=== PATIENT | female | born 2005 | race Caucasian/White ===

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

== ENCOUNTER 2024-03-16 08:54 | Emergency (ER) | payer MEDICAID ==
[~2024-03-16] VITALS: Ht 172.7 cm; Wt 104.5 kg
[2024-03-16] MEDS: LORazepam 1 MG tablet PO ONE (10:18)
[2024-03-16] MEDS: ketorolac trometh 15mg/ml vial 15 MG/ML ML IM ONE (10:19)
[2024-03-16 10:31] VITALS: BP 140/93; PULSE 92; RESP 16; TEMP 97.6; O2SAT 99
== END 2024-03-16 10:33 | disposition home or self-care (01) ==
LOC: ER 08:55
DX: R07.81 Pleurodynia (principal); F41.9 Anxiety disorder, unspecified; R07.89 Other chest pain; Z79.1 Long term (current) use of non-steroidal anti-inflammatories (NSAID); Z79.2 Long term (current) use of antibiotics; Z79.899 Other long term (current) drug therapy; Z98.890 Other specified postprocedural states
CPT/HCPCS: 96372; 99283; J1885

== ENCOUNTER 2024-03-16 23:45 | Emergency (ER) | payer MEDICAID ==
[~2024-03-16] VITALS: Ht 172.7 cm; Wt 106.8 kg
[2024-03-17 00:21] LABS: BASOPHILS # (AUTO) 0.1 X10'3 (0-0.2); BASOPHILS % (AUTO) 0.6 % (0-1); EOSINOPHILS # (AUTO) 0.1 X10'3 (0-0.9); EOSINOPHILS % (AUTO) 0.9 % (0-6); HEMATOCRIT 35.8 % (35.0-45.0); LYMPHOCYTES # (AUTO) 2.2 X10'3 (1.1-4.8); LYMPHOCYTES % (AUTO) 16.2 % (21-51); MEAN CORPUSCULAR HEMOGLOBIN 27.7 PG (27.0-31.0); MEAN CORPUSCULAR HGB CONC 33.5 g/dL (33.0-36.5); MEAN CORPUSCULAR VOLUME 82.9 FL (78-98); MEAN PLATELET VOLUME 7.6 FL (7.4-10.4); MONOCYTES # (AUTO) 1.1 X10'3 (0-0.9); MONOCYTES % (AUTO) 8.2 % (2-12); NEUTROPHILS # (AUTO) 9.9 X10'3 (1.8-7.7); NEUTROPHILS % (AUTO) 74.1 % (42-75); PLATELET COUNT 355 X10'3 (140-440); RED BLOOD COUNT 4.32 X10'6 (4.20-5.60); RED CELL DISTRIBUTION WIDTH 14.1 % (11.5-14.5); WHITE BLOOD COUNT 13.3 X10'3 (4.5-11.0)
[2024-03-17 00:37] LABS: ALANINE AMINOTRANSFERASE 30 U/L (12-78); ALKALINE PHOSPHATASE 78 IU/L (20-180); ANION GAP 9 (8-16); ASPARTATE AMINO TRANSFERASE 19 U/L (10-37); BILIRUBIN,TOTAL 0.7 MG/DL (0.1-1.0); BLOOD UREA NITROGEN 9 MG/DL (7-18); BUN/CREATININE RATIO 10.1 (10.0-20.0); CALCIUM 9.8 MG/DL (8.5-10.1); CHLORIDE 103 MMOL/L (99-107); CREATININE 0.89 MG/DL (0.40-0.90); GLUCOSE 110 MG/DL (70-104); POTASSIUM 3.8 MMOL/L (3.5-5.1); SODIUM 136 MMOL/L (135-145); TOTAL CARBON DIOXIDE 24.3 MMOL/L (24-32); TOTAL PROTEIN 8.2 G/DL (6.4-8.2); eCRCL 103 ML/MIN; eGFR 82 ML/MIN
[2024-03-17] MEDS: famotidine 20mg tablet PO ONE (00:42)
[2024-03-17] MEDS: LIDOcaine 2% Viscous 15ml cup MM ONE (00:42)
[2024-03-17] MEDS: mag hydrox/Alum hydrox/simeth 30ml oral suspension PO ONE (00:42)
[2024-03-17 00:50] LABS: D-DIMER 0.33 MG/L FEU (0-0.50)
[2024-03-17 00:53] LABS: PRO BRAIN NATRIURETIC PEPTIDE 48 PG/ML (0-125); THYROID STIMULATING HORMONE 2.67 ulU/ml (0.34-4.50)
[2024-03-17 01:10] LABS: URINE HCG NEGATIVE (NEG)
[2024-03-17 01:28] LABS: URINE AMPHETAMINE SCREEN NEGATIVE (Neg); URINE BARBITUATE SCREEN NEGATIVE (Neg); URINE BENZODIAZEPINES SCREEN NEGATIVE (Neg); URINE CANNABINOID SCREEN NEGATIVE (Neg); URINE COCAINE SCREEN NEGATIVE (Neg); URINE METHADONE SCREEN NEGATIVE (Neg); URINE OPIATE SCREEN NEGATIVE (Neg); URINE PHENCYCLIDINE SCREEN NEGATIVE (Neg)
[2024-03-17 02:09] VITALS: TEMP 98.6
[2024-03-17 02:15] VITALS: BP 119/82; PULSE 114; RESP 17; O2SAT 96
== END 2024-03-17 02:24 | disposition home or self-care (01) ==
LOC: ER 23:46
DX: R07.89 Other chest pain (principal); Z79.899 Other long term (current) drug therapy; Z79.2 Long term (current) use of antibiotics; Z79.1 Long term (current) use of non-steroidal anti-inflammatories (NSAID); Z98.890 Other specified postprocedural states
CPT/HCPCS: 36415; 71045; 80053; 80305; 81025; 83880; 84145; 84443; 84484; 85025; 85379; 93005; 99285

== ENCOUNTER 2024-08-15 08:56 | Emergency (ER) | payer MEDICAID ==
[~2024-08-15] VITALS: Ht 172.7 cm; Wt 111.5 kg
[2024-08-15] MEDS ORDERED: GUAI120015 PO (10:13)
[2024-08-15] MEDS ORDERED: SODI30SP3 BOTHNARES (10:13)
[2024-08-15 10:57] VITALS: BP 110/75; PULSE 90; RESP 16; TEMP 99; O2SAT 99
== END 2024-08-15 10:55 | disposition home or self-care (01) ==
LOC: ER 08:56
DX: B34.9 Viral infection, unspecified (principal); Z90.89 Acquired absence of other organs; Z20.822 Contact with and (suspected) exposure to COVID-19
CPT/HCPCS: 36415; 87502; 87503; 87811; 99283

== ENCOUNTER 2024-09-08 08:58 | Emergency (ER) | payer MEDICAID ==
[~2024-09-08] VITALS: Ht 172.7 cm; Wt 99.5 kg
[~2024-09-08 08:58] MED LIST changes: +GUAI120015 PO; +SODI30SP3 BOTHNARES
[2024-09-08] MEDS: normal saline 1000ml 1,000 ML IV ONE (13:06)
[2024-09-08] MEDS: ondansetron/PF 4mg/2ml inj IV ONE (13:20)
[2024-09-08] MEDS: ketorolac trometh 15mg/ml vial 15 MG/ML ML IV ONE (13:21)
[2024-09-08 13:24] LABS: BILIRUBIN,URINE SMALL (Neg); CLARITY,URINE CLEAR (Clear); COLOR,URINE YELLOW (Yellow); GLUCOSE, URINE NEGATIVE (Neg); KETONES,URINE >=80 mg/dl (Neg); LEUKOCYTE ESTERASE ,URINE NEGATIVE (Neg); NITRITES, URINE NEGATIVE (Neg); OCCULT BLOOD,URINE NEGATIVE (Neg); PH,URINE 6.5 (4.8-8.0); PROTEIN,URINE 30 mg/dl (Neg); UROBILINOGEN,URINE 0.2 E.U/dL (0.2-1.0)
[2024-09-08 13:25] LABS: BASOPHILS % (AUTO) 0.4 % (0-1); EOSINOPHILS % (AUTO) 0.2 % (0-6); HEMATOCRIT 35.6 % (35.0-45.0); LYMPHOCYTES # (AUTO) 0.2 X10'3 (1.1-4.8); LYMPHOCYTES % (AUTO) 3.9 % (21-51); MEAN CORPUSCULAR HGB CONC 33.8 g/dL (33.0-36.5); MEAN CORPUSCULAR VOLUME 82.7 FL (78-98); MEAN PLATELET VOLUME 7.8 FL (7.4-10.4); MONOCYTES # (AUTO) 0.7 X10'3 (0-0.9); MONOCYTES % (AUTO) 11.2 % (2-12); NEUTROPHILS # (AUTO) 5.2 X10'3 (1.8-7.7); NEUTROPHILS % (AUTO) 84.3 % (42-75); PLATELET COUNT 316 X10'3 (140-440); WHITE BLOOD COUNT 6.2 X10'3 (4.5-11.0)
[2024-09-08 13:26] LABS: UA COLLECTION TYPE CLN CATCH MIDSTREAM
[2024-09-08 13:35] LABS: BACTERIA,URINE NONE SEEN /HPF (Neg); RBC,URINE NONE SEEN /HPF (0-2); SQUAMOUS EPITHELIAL CELL,UR FEW /LPF (FEW); WBC,URINE NONE SEEN /HPF (0-4)
[2024-09-08 13:36] LABS: ALANINE AMINOTRANSFERASE 27 U/L (12-78); ALBUMIN 4.2 G/DL (3.4-5.0); ALKALINE PHOSPHATASE 80 IU/L (20-180); ANION GAP 9 (8-16); ASPARTATE AMINO TRANSFERASE 14 U/L (10-37); BILIRUBIN,TOTAL 0.6 MG/DL (0.1-1.0); BLOOD UREA NITROGEN 9 MG/DL (7-18); BUN/CREATININE RATIO 10.1 (10.0-20.0); CALCIUM 9.3 MG/DL (8.5-10.1); CHLORIDE 101 MMOL/L (99-107); CREATININE 0.89 MG/DL (0.40-0.90); GLUCOSE 97 MG/DL (70-104); POTASSIUM 3.6 MMOL/L (3.5-5.1); SODIUM 138 MMOL/L (135-145); TOTAL CARBON DIOXIDE 28.3 MMOL/L (24-32); TOTAL PROTEIN 8.6 G/DL (6.4-8.2); eCRCL 103 ML/MIN; eGFR 82 ML/MIN
[2024-09-08 13:59] LABS: BETA HCG,QUANTITATIVE < 1.0 mIU/ml
[2024-09-08] MEDS ORDERED: iohexol 300mg/ml 100ml inj. ONE (14:03)
[2024-09-08] MEDS ORDERED: IBUP-862 PO (14:58)
[2024-09-08] MEDS ORDERED: HYDR-3965 PO (14:58)
[2024-09-08 15:21] VITALS: BP 130/78; PULSE 80; RESP 16; TEMP 98.7; O2SAT 98
== END 2024-09-08 15:22 | disposition home or self-care (01) ==
LOC: ER 08:59
DX: N83.201 Unspecified ovarian cyst, right side (principal); N94.6 Dysmenorrhea, unspecified; M54.6 Pain in thoracic spine; R50.9 Fever, unspecified; Z90.89 Acquired absence of other organs
CPT/HCPCS: 36415; 74177; 80053; 81001; 84702; 85025; 87502; 87503; 96361; 96374; 96375; 99285; J1885; J2405; J7030; Q9967

== ENCOUNTER 2024-09-24 09:02 | Emergency (ER) | payer MEDICAID ==
[~2024-09-24] VITALS: Ht 172.7 cm; Wt 109.1 kg
[~2024-09-24 09:02] MED LIST changes: +HYDR-3965 PO; +IBUP-862 PO
[2024-09-24 10:55] VITALS: TEMP 100
[2024-09-24 12:52] VITALS: BP 110/78; PULSE 107; RESP 16; O2SAT 97
== END 2024-09-24 13:06 | disposition home or self-care (01) ==
LOC: ER 09:03
DX: B34.9 Viral infection, unspecified (principal); R05.9 Cough, unspecified; Z90.89 Acquired absence of other organs; Z79.1 Long term (current) use of non-steroidal anti-inflammatories (NSAID); Z79.899 Other long term (current) drug therapy; Z20.822 Contact with and (suspected) exposure to COVID-19
CPT/HCPCS: 36415; 71046; 87502; 87503; 87811; 99284

== ENCOUNTER 2024-11-06 15:23 | Emergency (ER) | payer MEDICAID ==
[~2024-11-06] VITALS: Ht 172.7 cm; Wt 97.0 kg
[~2024-11-06 15:23] MED LIST changes: -HYDR-3965 PO
[2024-11-06 15:37] VITALS: BP 148/97; PULSE 93; RESP 15; TEMP 98.2; O2SAT 100
[2024-11-06] MEDS ORDERED: BENZ142C9 TOP (15:58)
[2024-11-06] MEDS ORDERED: MUPI22OI30 TOP (16:13)
== END 2024-11-06 17:38 | disposition home or self-care (01) ==
LOC: ER 15:24
DX: L08.9 Local infection of the skin and subcutaneous tissue, unspecified (principal); Z90.89 Acquired absence of other organs
CPT/HCPCS: 99283

== ENCOUNTER 2024-12-07 17:32 | Emergency (ER) | payer MEDICAID ==
[~2024-12-07] VITALS: Ht 172.7 cm; Wt 109.1 kg
[~2024-12-07 17:32] MED LIST changes: +BENZ142C9 TOP
--- NOTE | 2024-12-07 19:17 | Physician Documentation ---
History of Present Illness ~ Chief Complaint: Arm Pain Stated Complaint: NUMBNESS AND PAIN IN RT ARM/SHOULDER/NECK Time Seen by MD: 18:29 Primary Medical Doctor: [facility] HPI Patient presents to the emergency room for evaluation of right arm and neck pain has been progressive over the past week. Patient was works at a sandwich shop and uses Tums. Pain with tenderness to palpation over her right neck during episodes pain she feels dizzy like she may pass out. No palpitations. O ccasional ibuprofen for pain. No history of neck traumas/car accidents. She was states she feels a click in her wrist when she moves it. Tetanus within 5 years: No Medication Reconciliation Allergies: Coded Allergies: No Known Allergies (Unverified , 12/07/24) Scheduled Albuterol Sulfate (Proventil Hfa), 2 PUFFS INH Q6H Amox Tr/Potassium Clavulanate (Augmentin 875-125 Tablet), 1 TAB PO Q12H Benzoyl Peroxide (Benzoyl Peroxide), 1 APPLIC TOP Q12H Cephalexin (Keflex), 1 CAP PO Q6H Guaifenesin (Mucinex), 1 TAB PO Q12H Ibuprofen (Ibu), 1 TAB PO Q6H Lidocaine Hcl (Xylocaine Viscous), 5 ML PO Q2H PRN SORE THROAT Sodium Chloride (Saline Nasal [place]), 1-2 SPRAYS BOTHNARES Q2H Scheduled PRN Ibuprofen (Ibuprofen), 1 TAB PO Q8H PRN for pain Miscellaneous Medications Home Med List (No Home Medications), (Reported) Past Medical History Past Medical History: No Pertinent History Past Surgical History: tonsillectomy Last Menstrual Period: Nov 16, 2024 Alcohol Use: None Drug Use: none Lives with: Family Lives In: Home Occupation: student, child Review of Systems ROS All review of systems negative except as per HPI Physical Exam Vital Signs: Temperature: 98.0, Heart Rate: 89, Respiratory Rate: 16, BP: 119/79, Pulse Oximetry: 97, Weight: 109.090 Physical Exam General: Patient is awake, alert, oriented x4 in no acute distress and well appearing.~ Head: Normocephalic and atraumatic. Eyes: Conjunctival normal. EOMI. PERRL. ENT: Mucous membranes moist. Neck: Supple, trachea is midline. Positive to palpation right trapezius Chest: Clear to auscultation bilaterally without rales, rhonchi, or wheezes. There is no accessory muscle use or retractions. Cardiac: RRR without murmurs, gallops, or rubs. Abd: Soft, nondistended, nontender, with normoactive bowel sounds. No guarding, rebound, or rigidity. Extremities: Left upper extremity normal, right upper extremity with positive Tinel sign positive Phalen sign and positive Neer's. Progress Results/Orders Results/Orders Vital Signs 12/07/24 17:48 Temp 98.0 Pulse 89 Resp 16 B/P (MAP) 119/79 Pulse Ox 97 Medical Decision Making Findings Patient presents to the emergency room with right neck and arm pain as per HPI. Differentials include but are not limited to musculoskeletal pain, referred pain, ACS, impingement syndrome, carpal tunnel. Physical exam is consistent with carpal tunnel. There may be an element of impingement syndrome as well. 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 Had long discussion regarding the anatomy of carpal tunnel in the need to wear splinting and anti-inflammatories. Regarding her �almost passing out �it was no palpitations reported and she was very low cardiovascular risk. Departure Disposition: 01 HOME / SELF CARE / HOMELESS Impression: Primary Impression: Carpal tunnel syndrome Discharge Instructions: Carpal Tunnel Syndrome Additional Instructions: Nighttime splinting it was imperative along with course of nonsteroidal anti- inflammatory such as ibuprofen and a leave. Ibuprofen leave we will give you pain benefits however I am more interested in the anti-inflammatory action therefore I recommend a leave as it was only 2 times daily dosing. Tried to modify your daily activities. Follow up with your doctor as you may need referral to physical therapy. Referrals: NO PRIMARY CARE PROVIDER (PCP) Prescriptions Acetaminophen (Tylenol Extra Strength) 500 Mg Tablet 2 TAB PO Q6H PRN PRN for pain or fever for 7 Days, #56 TAB Prov: KAVIN MAR MD 12/07/24 Naproxen Sodium* (Aleve*) 220 Mg Capsule 220 MG PO BID, #60 TAB Prov: KAVIN MAR MD 12/07/24 Education Educated: Patient Educated regarding: diagnosis, treatment, need for follow up Signature Scribe Signature: No scribe Attestation: The note accurately reflects work and decisions made by me.Kavin Mar MD 12/07/24 19:21 KAVIN MAR MD December 07, 2024 19:17
[2024-12-07] MEDS ORDERED: ACET-2615 PO (19:20)
[2024-12-07] MEDS ORDERED: NAPR220C15 PO (19:20)
[2024-12-07] MEDS: acetaminophen 325mg tablet PO ONE (19:33)
[2024-12-07] MEDS: ketorolac trometh 30MG/ML vial 30 MG/ML VIAL IM ONE (19:33)
[2024-12-07 19:38] VITALS: BP 116/78; PULSE 84; RESP 18; TEMP 98.6; O2SAT 99
== END 2024-12-07 19:39 | disposition home or self-care (01) ==
LOC: ER 17:33
DX: G56.01 Carpal tunnel syndrome, right upper limb (principal); Z90.89 Acquired absence of other organs
CPT/HCPCS: 96372; 99283; J1885

== ENCOUNTER 2024-12-31 10:45 | Emergency (ER) | payer MEDICAID ==
[~2024-12-31] VITALS: Ht 172.7 cm; Wt 109.2 kg
[~2024-12-31 10:45] MED LIST changes: +NAPR220C15 PO
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
[2024-12-31 11:52] LABS: URINE HCG NEGATIVE (NEG)
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
[2024-12-31] MEDS: ketorolac trometh 15mg/ml vial 15 MG/ML ML IV ONE (13:20)
[2024-12-31] MEDS ORDERED: iohexol 350MG/ML 100ml bottle IV ONE (13:46)
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
[2024-12-31 14:22] VITALS: BP 129/68; PULSE 65; RESP 16; TEMP 96.9; O2SAT 98
== END 2024-12-31 14:21 | disposition home or self-care (01) ==
LOC: ER 10:46
DX: S13.8XXA Sprain of joints and ligaments of other parts of neck, initial encounter (principal); Z79.899 Other long term (current) drug therapy; X50.1XXA Overexertion from prolonged static or awkward postures, initial encounter; Y93.89 Activity, other specified; Y92.89 Other specified places as the place of occurrence of the external cause; Y99.8 Other external cause status
CPT/HCPCS: 70498; 72040; 72125; 81025; 96374; 99285; J1885; Q9967

== ENCOUNTER 2025-05-26 08:28 | Inpatient (IN) | payer MEDICAID ==
[~2025-05-26] VITALS: Ht 172.7 cm; Wt 112.7 kg
[~2025-05-26 08:28] MED LIST changes: -IBUP-1985 PO; +IBUP600T52 PO; -NAPR220C15 PO
[2025-05-26 09:38] LABS: MEAN PLATELET VOLUME 7.2 FL (7.4-10.4); RED CELL DISTRIBUTION WIDTH 13.2 % (11.5-14.5)
[2025-05-26 09:48] LABS: URINE HCG NEGATIVE (NEG)
[2025-05-26 09:52] LABS: LEUKOCYTE ESTERASE ,URINE NEGATIVE (Neg); NITRITES, URINE NEGATIVE (Neg); OCCULT BLOOD,URINE NEGATIVE (Neg)
[2025-05-26 09:56] LABS: UA COLLECTION TYPE CLN CATCH MIDSTREAM
[2025-05-26 09:56] LABS: CREATININE 0.89 MG/DL (0.40-0.90); TOTAL CARBON DIOXIDE 29.4 MMOL/L (24-32); eCRCL 102 ML/MIN; eGFR 81 ML/MIN
[2025-05-26] MEDS: mag hydrox/Alum hydrox/simeth 30ml oral suspension PO ONE (10:24)
[2025-05-26] MEDS: CefTRIAXone/D5W-Rocephin 1gm 50 ML IV ONE (10:24)
[2025-05-26] MEDS: LIDOcaine 2% Viscous 15ml cup MM PRN (10:24)
--- NOTE | 2025-05-26 11:08 | RADIOLOGY REPORT ---
INDICATION: epigastric abdominal pain TECHNIQUE: Multiple real-time sonographic images were obtained of the right upper quadrant. COMPARISON: CT CT ABDOMEN PELVIS W/ IV CONTRAST on DOS: 09/08/24 FINDINGS: The liver demonstrates homogeneous echotexture without focal mass lesions. The liver measures 14.6 cm. There is no intrahepatic or extrahepatic ductal dilatation. The common duct measures 0.2 cm. Gallbladder sludge and stones are present. The gallbladder wall measures 0.3 cm and is within normal limits. The right kidney measures 10.4 cm. The right kidney is normal in contour, size, and shape. The echogenicity is normal. There is no hydronephrosis. The pancreas is not well visualized due to overlying bowel gas. IMPRESSION: Gallbladder sludge and stones are present.
--- NOTE | 2025-05-26 11:52 | Physician Documentation ---
History of Present Illness Chief Complaint: Abdominal Pain Stated Complaint: ABD PAIN Time Seen by MD: 08:38 Primary Medical Doctor: [facility] Mode of Arrival: POV, Ambulatory HPI 19 year old female reports several days of epigastric pain radiating to her back. She reports nausea but no vomiting, no fevers/cough/shortness of breath/diarrhea/chest pain. She has experienced multiple episodes of this over the past few years, but has never been diagnosed with an etiology. She has not eaten much in the past few days. Denies abdominal surgeries. Medication Reconciliation Allergies: Coded Allergies: No Known Allergies (Unverified , 12/07/24) Scheduled Albuterol Sulfate (Proventil Hfa), 2 PUFFS INH Q6H Amox Tr/Potassium Clavulanate (Augmentin 875-125 Tablet), 1 TAB PO Q12H Benzoyl Peroxide (Benzoyl Peroxide), 1 APPLIC TOP Q12H Cephalexin (Keflex), 1 CAP PO Q6H Guaifenesin (Mucinex), 1 TAB PO Q12H Ibuprofen (Ibu), 1 TAB PO Q6H Lidocaine Hcl (Xylocaine Viscous), 5 ML PO Q2H PRN SORE THROAT Sodium Chloride (Saline Nasal [place]), 1-2 SPRAYS BOTHNARES Q2H Scheduled PRN Ibuprofen (Ibuprofen), 1 TAB PO Q8H PRN for pain Miscellaneous Medications Home Med List (No Home Medications), (Reported) Past Medical History Past Medical History: No Pertinent History Past Surgical History: tonsillectomy Alcohol Use: None Drug Use: none Lives with: Family Lives In: Home Occupation: student, child Review of Systems All Other Systems at this time: Reviewed and Negative Physical Exam Vital Signs: RN Vital Signs have been reviewed: Yes, Temperature: 97.5, Source: Temporal, Heart Rate: 106, Respiratory Rate: 16, BP: 130/71, Pulse Oximetry: 100, Weight: 112.700 Oxygen Flow Rate: 0 Physical Exam HEENT: PERRL, moist oral mucosa, EOMI Pulmonary: No respiratory distress Cardiac: RRR, no murmur, rub or gallop GI: nondistended, soft, diffusely tender without cruz's sign or mcburney's point tenderness MSK: no deformity Skin: w/d/i, no rash Neuro: alert, nonfocal Psych: normal affect Progress Results/Orders Results/Orders Orders - ANA LUISA MOONEY MD Ultrasound Of Abdomen (05/26/25 ) Lidocaine 2% Viscous (Xylocaine 2% Visco (05/26/25 10:10) Completed Orders - ANA LUISA MOONEY MD Urinalysis, Cult If Indicated (05/26/25 08:35) Hcg, Ur Ql (05/26/25 08:35) Cbc/Diff (05/26/25 08:35) BMP (05/26/25 08:35) Lipase (05/26/25 08:35) CMP (05/26/25 08:35) Ceftriaxone/[id number] 1gm (Rocephin 1 (05/26/25 09:55) Ultrasound Of Abdomen (05/26/25 ) Mag & Alum Hydrox/Simeth Susp (Maalox Or (05/26/25 10:10) Medications Received in ER Medications (Trade) Dose Ordered Sig/Leonidas Route PRN Reason Start Time Stop Time Status Last Admin Dose Admin Ceftriaxone Sodium 50 ml @ 100 mls/hr ONCE ONCE IV 05/26/25 09:55 05/26/25 10:24 DC 05/26/25 10:24 100 MLS/HR (Maalox oral suspension) 30 ml ONCE ONCE PO 05/26/25 10:10 05/26/25 10:11 DC 05/26/25 10:24 30 ML (Xylocaine 2% Viscous 15mL cup) 15 ml ONCE PRN MM sore throat 05/26/25 10:10 05/26/25 10:24 15 ML Vital Signs 05/26/25 05/26/25 08:30 08:52 Temp 97.5 Pulse 106 Resp 16 16 B/P (MAP) 130/71 Pulse Ox 100 O2 Flow Rate 0 Laboratory Tests Test 05/26/25 09:15 05/26/25 09:19 Urine Specimen Description Cln catch midstream Urine Color Yellow Urine Clarity Clear Urine pH 6.0 Urine Specific [place] 1.025 Urine Protein Negative Urine Glucose (UA) Negative Urine Ketones Negative Urine Occult Blood Negative Urine Nitrite Negative Urine Bilirubin Negative Urine Urobilinogen 0.2 Urine Leukocyte Esterase Negative Urine Culture Indicated Not ind Volume Urine Centrifuged 10 ml Urine HCG, Qualitative Negative Urine Comment White Blood Count 8.9 Red Blood Count 4.38 Hemoglobin 12.2 Hematocrit 35.8 Mean Corpuscular Volume 81.8 Mean Corpuscular Hemoglobin 27.7 Mean Corpuscular Hemoglobin Concent 33.9 Red Cell Distribution Width 13.2 Platelet Count 355 Mean Platelet Volume 7.2 L Neutrophils (%) (Auto) 65.4 Lymphocytes (%) (Auto) 24.9 Monocytes (%) (Auto) 6.9 Eosinophils (%) (Auto) 2.1 Basophils (%) (Auto) 0.7 Neutrophils # (Auto) 5.8 Lymphocytes # (Auto) 2.2 Monocytes # (Auto) 0.6 Eosinophils # (Auto) 0.2 Basophils # (Auto) 0.1 CBC Comment Sodium Level 138 Potassium Level 3.3 L Chloride Level 102 Carbon Dioxide Level 29.4 Anion Gap 7 L Blood Urea Nitrogen 10 Creatinine 0.89 Estimated GFR/1.73 m2 81 BUN/Creatinine Ratio 11.2 Glucose Level 101 Calcium Level 8.9 Total Bilirubin 0.4 Aspartate Amino Transf (AST/SGOT) 31 Alanine Aminotransferase (ALT/SGPT) 29 Alkaline Phosphatase 91 Total Protein 8.0 Albumin 3.7 Globulin 4.3 Albumin/Globulin Ratio 0.9 L Lipase 37 Chemistry Comments Medical Decision Making Additional information obtaine: N/A Findings 19 year old female with epigastric pain. Exam and vitals unremarkable. Workup d emonstrated normal labs but US demonstrating multiple stones/sludge and thickened gallbladder wall. Plan to notify surgeon and admit to hospitalist for recurrent biliary colic and indication for cholecystectomy. Differential Dx:Considerations: Appendicitis, Cholangitis, Cholelithasis, Esophagitis, Gastritis/PUD, Hepatitis, Ovarian cyst/torsion, Pancreatitis, PID, Urinary tract infection Departure Disposition: 09 ADMITTED INPATIENT Admitted to Inpatient Unit: to hospitalist Admission Level of Care: Med/Surg Impression: Primary Impression: Recurrent biliary colic Condition: Stable Referrals: NO PRIMARY CARE PROVIDER (PCP) Education Educated: Patient Educated regarding: diagnosis, treatment, prognosis, need for follow up Signature Scribe Signature: . Attestation: . ANA LUISA MOONEY MD May 26, 2025 11:52
[2025-05-26] MEDS ORDERED: magnesium sulf-water 4G/100mL 100 ML IV PRN (12:35)
[2025-05-26] MEDS ORDERED: mag hydrox/Alum hydrox/simeth 30ml oral suspension PO PRN (12:35)
[2025-05-26] MEDS ORDERED: potassium Cl 40MEQ/1/2NS 520ml 520 ML IV PRN (12:35)
[2025-05-26] MEDS ORDERED: potassium Cl 20 mEq SR tablet PO PRN (12:35)
[2025-05-26] MEDS ORDERED: magnesium sulf-water 2g/50mL 50 ML IV PRN (12:35)
[2025-05-26] MEDS ORDERED: magnesium hydroxide 30ml (MOM) UD suspension PO PRN (12:35)
[2025-05-26] MEDS ORDERED: morphine 4 MG/ML inj SYRINge IV PRN (12:49)
[2025-05-26] MEDS: ondansetron/PF 4mg/2ml inj IV PRN (13:00)
[2025-05-26] MEDS: morphine 4 MG/ML inj SYRINge IV PRN (13:01)
[2025-05-26] MEDS ORDERED: NORMAL SALINE IV ONE ×3 (13:10→18:10)
[2025-05-26] MEDS ORDERED: SINCALIDE IV ONE ×3 (13:10→18:10)
[2025-05-26 14:25] VITALS: BP 112/69; PULSE 84; RESP 16; TEMP 98.6; O2SAT 99
[2025-05-26] MEDS: normal saline 1000ml 1,000 ML IV SCH (15:45)
--- NOTE | 2025-05-26 17:29 | HISTORY AND PHYSICAL ---
History & Physical Providers to CC ~ History of Present Illness Reason for Admit\Complaint: Abdominal pain with nausea and and chills History of Present Illness This is a 19-year-old female who has a history of chronic abdominal pain and nausea this has been increasing significantly over the past several days and points to her epigastric region which is radiating to her back. The patient notices that her abdominal discomfort increases with stress and eating carbohydrate rich foods and is less affected by fatty foods. Abdominal ultrasound did demonstrate gallstones and sludge in the gallbladder other than a serum potassium of 3.3 the remaining lab values including liver function tests and bilirubin as well as lipase are all well within normal limits. Patient has a negative Brody sign on exam I did order a HIDA scan. Start the patient on famotidine and Tums. Note beta hCG is negative and that is the patient is not . Allergies: Coded Allergies: No Known Allergies (Unverified , 12/07/24) Home Medications Home Medications Active Reported No Home Medications (Home Med List) Each Past Medical History Past Medical History No chronic health conditions Past Surgical History Surgical History Comment Tonsillectomy Family History Family History: FH: diabetes mellitus Maternal grandmother Paternal grandmother Past Social History Social History Comment Occasionally vapes nicotine, denies any alcohol or use illicit drug use. Full code status. ROS ROS Except for positives in the HPI the rest of the 14 point review systems is negative. Exam Vitals: Vital Signs Date Time Temp Pulse Resp B/P (MAP) Pulse Ox O2 Delivery O2 Flow Rate FiO2 05/26/25 14:25 98.6 84 16 112/69 (83) 99 Room Air 05/26/25 12:30 0 General: Gen. No acute distress alert and oriented 4 Lungs clear to ascultation bilaterally, no wheezes rales or rhonchi appreciated Heart normal sinus rhythm no murmurs rubs or clicks noted Abdomen soft moderate epigastric and left upper quadrant tenderness, right upper quadrant is nontender with a negative Brody sign bowel sounds are normoactive Lower extremities no clubbing cyanosis, nor edema appreciated bilaterally Diagnostic Data Last Recorded Lab Results: 05/26/2591805/26/25918 Advance Care Planning Advanced Care plannin - 30 Minutes Problems: (1) Abdominal pain Status: Acute Additional Plan # upper abdominal discomfort # cholelithiasis and gallbladder sludge HIDA scan is ordered with EF However per exam more likely secondary to esophagitis or GERD Start famotidine and scheduled Tums. # hypokalemia on potassium replacement protocol # DVT prophylaxis Ambulation I spent a total of 16 minutes on reviewing various resuscitative measures/ ACP with the patient at the time of admission. The patient has decided on full code status Date of Service: May 26, 2025 Billing Provider: MICKI HERR DO Common Visit Codes: 35913-[id number] INP/OBS CARE (MOD) Secondary Visit Codes: 22410-[id number] CARE PLAN 30 MINUTES MICKI HERR DO May 26, 2025 17:29
[2025-05-26] MEDS: ketorolac trometh 30MG/ML vial 30 MG/ML VIAL IV SCH (18:00)
[2025-05-26] MEDS ORDERED: sincalide inj 2.2 MCG in normal saline 100ml IV soln 100 ML IV ONE (18:10)
[2025-05-26 18:30] VITALS: BP 124/76; PULSE 92; RESP 16; TEMP 96.7; O2SAT 98
[2025-05-26] MEDS: K and/or MAG REPLACEMENT MC SCH (19:20)
[2025-05-26 20:00] VITALS: RESP 16; O2SAT 98
--- NOTE | 2025-05-26 20:45 | RADIOLOGY REPORT ---
EXAM: NM NM HIDA SCAN DATE OF SERVICE: 05/26/2025 04:01 PM ORDERING PHYSICIAN: MICKI HERR REASON FOR EXAM: Gallstones TECHNIQUE: Planer images and clips were acquired of the abdomen for 60 minutes. COMPARISON: US ULTRASOUND OF ABDOMEN on DOS: 05/26/25, CT CT ABDOMEN PELVIS W/ IV CONTRAST on DOS: 09/08/24 FINDINGS: There was normal uptake of radiotracer into the liver and excretion into the biliary system, small bowel, and gallbladder. IMPRESSION: Unremarkable HIDA examination. Patent cystic duct. End of Report
[2025-05-26] MEDS: potassium Cl 20 mEq SR tablet PO PRN (21:10)
[2025-05-26] MEDS: docusate sod 100mg capsule PO SCH (21:12)
[2025-05-26 22:00] VITALS: BP 90/63; PULSE 78; RESP 18; TEMP 98.2; O2SAT 96
[2025-05-27 06:00] VITALS: BP 93/51; PULSE 66; RESP 18; TEMP 97.5; O2SAT 97
[2025-05-27 06:16] LABS: MEAN PLATELET VOLUME 7.5 FL (7.4-10.4); RED CELL DISTRIBUTION WIDTH 13.7 % (11.5-14.5)
[2025-05-27 06:28] LABS: CREATININE 0.88 MG/DL (0.40-0.90); TOTAL CARBON DIOXIDE 27.6 MMOL/L (24-32); eCRCL 103 ML/MIN; eGFR 82 ML/MIN
[2025-05-27 08:00] VITALS: RESP 16; O2SAT 98
[2025-05-27] MEDS: calcium carbonate 500mg chew tablet PO SCH (08:43)
[2025-05-27] MEDS ORDERED: PANT-47 PO (08:49)
--- NOTE | 2025-05-27 20:04 | DISCHARGE SUMMARY ---
Discharge Summary Providers to CC ~ Discharge Summary Admission Diagnosis: Symptomatic biliary colic Hospital Course DATE OF ADMISSION: 05/26/2025 DATE OF DISCHARGE: 05/27/2025 Discharge Diagnosis\Comment: Abdominal pain secondary to GERD, incidental cholelithiasis and gallbladder sludge, hypokalemia Operations\Procedures: None Consultants: None Complications: None Condition on DC: Stable New Medications: Pantoprazole Sodium (PROTONIX tablet) 40 Mg Tablet.dr 1 TAB PO DAILY for 30 Days, #30 TAB 0 Refills Discontinued Medications: Home Med List (No Home Medications) Each Discharge Summary: I admitted the patient with the following HPI: This is a 19-year-old female who has a history of chronic abdominal pain and nausea this has been increasing significantly over the past several days and points to her epigastric region which is radiating to her back. The patient notices that her abdominal dis comfort increases with stress and eating carbohydrate rich foods and is less affected by fatty foods. Abdominal ultrasound did demonstrate gallstones and sludge in the gallbladder other than a serum potassium of 3.3 the remaining lab values including liver function tests and bilirubin as well as lipase are all well within normal limits. Patient has a negative Brody sign on exam I did order a HIDA scan. Start the patient on famotidine and Tums. Note beta hCG is negative and that is the patient is not . The patient is HIDA scan was negative for cholecystitis with a normal functioning gallbladder. And speaking with the patient the following morning as well at the time of the admission appears that the patient is experiencing GERD versus esophagitis and the patient was discharged with a prescription for pantoprazole 40 mg daily. I did recommend the patient avoid spicy foods as well as carbonated beverages and not to vape nicotine as this will irritated esophageal sphincter and likely cause significant abdominal discomfort. I did discuss with the patient about avoiding fatty foods as she does have gallbladder sludge and cholelithiasis. The patient has a serum potassium of 3.3 on admission this normalized with a potassium replacement protocol and was 4.2 on day discharge. Gen. No acute distress alert and oriented 4 Lungs clear to ascultation bilaterally, no wheezes rales or rhonchi appreciated Heart normal sinus rhythm no murmurs rubs or clicks noted Abdomen soft nontender bowel sounds are normoactive Lower extremities no clubbing cyanosis, nor edema appreciated bilaterally The patient felt ready to be discharged and was medically cleared to be discharged on 05/27/2025 The patient was seen and evaluated on day of discharge. Time spent on discharge 25 minutes *Problems/Diagnosis: (1) Abdominal pain Status: Acute Total Time Spent on D/C: Up to 30 Minutes Date of Service: May 27, 2025 Billing Provider: MICKI HERR DO Common Visit Codes: 48749-ZIB/OBS DISCH DAY <30MIN MICKI HERR DO May 27, 2025 20:04
== END 2025-05-27 11:31 | disposition home or self-care (01) | DRG 243 ==
LOC: ER 08:28 → ED HOLD 12:41 → SUR 3N 14:06
PROVIDERS: ADMIT Family Medicine; ATTEND Family Medicine
PROC: CF1C1ZZ Planar Nuclear Medicine Imaging of Hepatobiliary System, All using Technetium 99m (Tc-99m) (ICD-10-PCS; principal; 2025-05-26)
DX: K21.9 Gastro-esophageal reflux disease without esophagitis (principal); E87.6 Hypokalemia; K80.20 Calculus of gallbladder without cholecystitis without obstruction; K82.8 Other specified diseases of gallbladder; F17.290 Nicotine dependence, other tobacco product, uncomplicated; Z79.899 Other long term (current) drug therapy; Z83.3 Family history of diabetes mellitus
CPT/HCPCS: 36415; 76700; 78226; 80053; 81003; 81025; 83690; 83735; 85025; 87081; 96365; 99285; A9537; G0378; J0696; J2270; J2405; J2470; J7030

== ENCOUNTER 2025-05-31 22:33 | Emergency (ER) | payer MEDICAID ==
[~2025-05-31] VITALS: Ht 172.7 cm; Wt 105.5 kg
[~2025-05-31 22:33] MED LIST changes: -ALBU6.7H14 INH; -AMOX-117 PO; -BENZ142C9 TOP; -CEPH-571 PO; -GUAI120015 PO; -IBUP-862 PO; -IBUP600T52 PO; -LIDO20SO16 PO; -NO HOME MEDS; +PANT-47 PO; -SODI30SP3 BOTHNARES
[2025-05-31 23:08] LABS: MEAN PLATELET VOLUME 7.4 FL (7.4-10.4); RED CELL DISTRIBUTION WIDTH 13.5 % (11.5-14.5)
[2025-05-31 23:30] LABS: CREATININE 0.90 MG/DL (0.40-0.90); TOTAL CARBON DIOXIDE 28.7 MMOL/L (24-32); eCRCL 101 ML/MIN; eGFR 80 ML/MIN
[2025-06-01] LABS: URINE HCG NEGATIVE (NEG)
[2025-06-01 00:03] LABS: LEUKOCYTE ESTERASE ,URINE NEGATIVE (Neg); NITRITES, URINE NEGATIVE (Neg); OCCULT BLOOD,URINE NEGATIVE (Neg)
--- NOTE | 2025-06-01 00:05 | Physician Documentation ---
History of Present Illness Chief Complaint: Abdominal Pain Stated Complaint: ABD PAIN Primary Medical Doctor: [facility] HPI This is a 19-year-old female who presents back to the emergency department with epigastric pain. Patient reports that this pain has been going on for years however that has gotten worse over the past few weeks. Seems to be affected by food. She was admitted here this week were gallbladder ultrasound was performed along with HIDA scan. They did find some sludge in some stones. No fevers. Patient's pain has improved by the time that has able to see patient but she still continues to have some nausea. Medication Reconciliation Allergies: Coded Allergies: ondansetron (Verified Allergy, Mild, rash, 06/01/25) Uncoded Allergies: ADHESIVE (TAPE) (Allergy, Severe, 06/01/25) Scheduled Pantoprazole Sodium (PROTONIX tablet), 1 TAB PO DAILY Discontinued Medications Albuterol Sulfate (Proventil Hfa), 2 PUFFS INH Q6H Discontinued Reason: patient no longer taking Amox Tr/Potassium Clavulanate (Augmentin 875-125 Tablet), 1 TAB PO Q12H Discontinued Reason: patient no longer taking Benzoyl Peroxide (Benzoyl Peroxide), 1 APPLIC TOP Q12H Discontinued Reason: patient no longer taking Cephalexin (Keflex), 1 CAP PO Q6H Discontinued Reason: patient no longer taking Guaifenesin (Mucinex), 1 TAB PO Q12H Discontinued Reason: patient no longer taking Home Med List (No Home Medications), (Reported) Ibuprofen (Ibuprofen), 1 TAB PO Q8H PRN for pain Discontinued Reason: patient no longer taking Ibuprofen (Ibu), 1 TAB PO Q6H Discontinued Reason: patient no longer taking Lidocaine Hcl (Xylocaine Viscous), 5 ML PO Q2H PRN SORE THROAT Discontinued Reason: patient no longer taking Sodium Chloride (Saline Nasal [place]), 1-2 SPRAYS BOTHNARES Q2H Discontinued Reason: patient no longer taking Past Medical History Past Medical History: No Pertinent History Past Surgical History: tonsillectomy Patient History: FH: diabetes mellitus Maternal grandmother Paternal grandmother Alcohol Use: None Drug Use: none Lives with: Family Lives In: Home Occupation: student, child Review of Systems ROS As stated above in the HPI, otherwise all systems are reviewed and negative. Physical Exam Vital Signs: Temperature: 97.7, Source: Temporal, Heart Rate: 95, Respiratory Rate: 18, BP: 105/82, Pulse Oximetry: 98, Weight: 105.500 Oxygen Flow Rate: 0 Physical Exam General: Patient is awake, alert, oriented x4 in no acute distress Head: Normocephalic and atraumatic. Eyes: Conjunctival normal. EOMI. PERRL. ENT: Mucous membranes moist. Neck: Supple, trachea is midline. Chest: Clear to auscultation bilaterally without rales, rhonchi, or wheezes. There is no accessory muscle use or retractions. Cardiac: RRR without murmurs, gallops, or rubs. Abd: Soft, nondistended, epigastric tenderness to pain without peritonitis Progress Results/Orders Results/Orders Vital Signs 05/31/25 22:52 Temp 97.7 Pulse 95 Resp 18 B/P (MAP) 105/82 Pulse Ox 98 O2 Flow Rate 0 Laboratory Tests Test 05/31/25 22:55 05/31/25 23:00 White Blood Count 6.4 Red Blood Count 4.61 Hemoglobin 12.7 Hematocrit 37.6 Mean Corpuscular Volume 81.6 Mean Corpuscular Hemoglobin 27.6 Mean Corpuscular Hemoglobin Concent 33.9 Red Cell Distribution Width 13.5 Platelet Count 398 Mean Platelet Volume 7.4 Neutrophils (%) (Auto) 60.5 Lymphocytes (%) (Auto) 29.9 Monocytes (%) (Auto) 7.2 Eosinophils (%) (Auto) 1.2 Basophils (%) (Auto) 1.2 H Neutrophils # (Auto) 3.9 Lymphocytes # (Auto) 1.9 Monocytes # (Auto) 0.5 Eosinophils # (Auto) 0.1 Basophils # (Auto) 0.1 CBC Comment Sodium Level 137 Potassium Level 3.4 L Chloride Level 100 Carbon Dioxide Level 28.7 Anion Gap 8 Blood Urea Nitrogen 11 Creatinine 0.90 Estimated GFR/1.73 m2 80 BUN/Creatinine Ratio 12.2 Glucose Level 104 Calcium Level 9.1 Total Bilirubin 1.6 H Aspartate Amino Transf (AST/SGOT) 382 H Alanine Aminotransferase (ALT/SGPT) 350 H Alkaline Phosphatase 238 H Total Protein 8.7 H Albumin 4.0 Globulin 4.7 H Albumin/Globulin Ratio 0.9 L Lipase 40 Chemistry Comments Urine HCG, Qualitative Negative Urine Comment Medical Decision Making Additional information obtaine: old records Findings MSE performed in triage and patient returned to ED lobby by nursing staff to await available ED room Differential Dx:Considerations: Appendicitis, Bowel obstruction, Cholangitis, Cholelithasis Addendum Sign-out note: I received sign-out on this patient at shift change. Pending abdominal ultrasound. I reviewed her laboratory testing, which shows elevated LFTs. Repeat chemistry panel shows slightly worsening LFTs. I reviewed her ultrasound, which shows gallstones but no inflammatory changes to suggest cholecystitis. We then proceeded with an MRCP. This shows dilated common bile duct but no obvious stone. Consult: I spoke to Dr. Smith, general surgery. He recommends transfer for ERCP. Multiple phone calls were made to outside hospitals. Eventually, I did speak to the hospital in [place] that was willing to accept the patient for transfer for GI evaluation. Patient was given further nausea medications and maintenance IV fluids. She will be transferred to an outside hospital for ERCP/GI evaluation. Addison Katz MD Departure Disposition: 02 SHORT TERM HOSPITAL Impression: Primary Impression: Choledocholithiasis Condition: Guarded Referrals: NO PRIMARY CARE PROVIDER (PCP) Critical Care Note Total Time (mins): 37 Critical Care Note The very real possibility of a deterioration of this patient's condition required the highest level of my preparedness for sudden, emergent intervention. I provided critical care services, which included medication orders, frequent reevaluations of the patient's condition and response to treatment, ordering and reviewing test results, and discussing the case with various consultants. Excludes time spent performing separately billable procedures. The critical care time associated with the care of the patient was 37 minutes counting procedures Signature Scribe Signature: No scribe Attestation: The note accurately reflects work and decisions made by me.Kavin Mar MD 06/01/25 19:54 GIANLUCA PIERCE Jun 01, 2025 00:05 KAVIN MAR MD Jun 01, 2025 00:53 ADDISON KATZ MD Jun 01, 2025 18:38
[2025-06-01 00:18] LABS: UA COLLECTION TYPE CLN CATCH MIDSTREAM
[2025-06-01] MEDS: ondansetron 4mg rapidly disintigrating tab PO ONE (01:04)
[2025-06-01 06:19] LABS: CREATININE 0.92 MG/DL (0.40-0.90); TOTAL CARBON DIOXIDE 31.1 MMOL/L (24-32); eCRCL 98 ML/MIN; eGFR 78 ML/MIN
--- NOTE | 2025-06-01 08:32 | RADIOLOGY REPORT ---
INDICATION: elevated liver enzymes TECHNIQUE: Multiple real-time sonographic images were obtained of the right upper quadrant. COMPARISON: US ULTRASOUND OF ABDOMEN on DOS: 05/26/25, CT CT ABDOMEN PELVIS W/ IV CONTRAST on DOS: 09/08/24 FINDINGS: The liver demonstrates homogeneous echotexture without focal mass lesions. The liver measures 14.2 cm. There is no intrahepatic or extrahepatic ductal dilatation. The common duct measures 0.8 cm. Gallbladder sludge and stones are present. The gallbladder wall measures 0.3 cm and is within normal limits. The right kidney measures 10.8 cm. The right kidney is normal in contour, size, and shape. The echogenicity is normal. There is no hydronephrosis. The pancreas is not well visualized due to overlying bowel gas. IMPRESSION: Gallbladder sludge and stones are present. Dilated common bile duct measuring 0.8 cm.
--- NOTE | 2025-06-01 09:23 | RADIOLOGY REPORT ---
[id number] MR MRCP Attending Name: STERLING HALLIE Kyara COMPARISON: CT CT ABDOMEN PELVIS W/ IV CONTRAST on DOS: 09/08/24 INDICATION: ruq pain, elevated lfts TECHNIQUE: MRCP was performed without the use of intravenous contrast using a MRI imaging system. Three-dimensional MRCP was performed using maximum intensity projection reconstruction on an independent workstation under concurrent supervision. FINDINGS: Visualized lower thorax: Limited imaging of the thorax demonstrates no suspicious pleural or parenchymal disease. Liver: Normal in morphology and signal intensity. Gallbladder: Gallstones and gallbladder sludge. Biliary system: Mild extrahepatic biliary ductal dilatation measuring 10 mm. No evidence of filling defect. Spleen: Normal in morphology and signal intensity. Pancreas: Normal in morphology and signal intensity. Adrenal glands: Normal in morphology and signal intensity. Kidneys: The kidneys are symmetric in size and appearance. No hydronephrosis. Urinary tract: The included ureters, as visualized, are normal in course and caliber. GI tract: The included portions of the bowel are within normal limits. Lymph nodes: No enlarged lymph nodes. Peritoneum: No ascites. Musculoskeletal: The bone marrow signal intensity is within normal limits. IMPRESSION: Gallstones and gallbladder sludge. Mild extrahepatic biliary ductal dilatation measuring 10 mm. No evidence of filling defect to suggest choledocholithiasis.
[2025-06-01] MEDS: normal saline 1000ml 1,000 ML IV SCH (11:52)
[2025-06-01 11:55] VITALS: TEMP 97.7
[2025-06-01 16:19] VITALS: BP 105/66; PULSE 80; RESP 18; O2SAT 98
[2025-06-01] MEDS: piperacillin/tazo 4.5gm/100ml 100 ML IV SCH (18:54)
== END 2025-06-01 19:25 | disposition short-term general hospital (02) ==
LOC: ER 22:34
DX: K80.50 Calculus of bile duct without cholangitis or cholecystitis without obstruction (principal); Z88.8 Allergy status to other drugs, medicaments and biological substances; Z79.899 Other long term (current) drug therapy; Z20.822 Contact with and (suspected) exposure to COVID-19
CPT/HCPCS: 36415; 80053; 81003; 81025; 83690; 85025; 87811; 96361; 96365; 96375; 99291; J0780; J2543; J7030; Q0163; 99285

== ENCOUNTER 2025-07-02 20:06 | Emergency (ER) | payer MEDICAID ==
[~2025-07-02] VITALS: Ht 172.7 cm; Wt 108.0 kg
[2025-07-02 20:53] LABS: URINE HCG NEGATIVE (NEG)
[2025-07-02 21:08] LABS: MEAN PLATELET VOLUME 7.8 FL (7.4-10.4); RED CELL DISTRIBUTION WIDTH 14.3 % (11.5-14.5)
[2025-07-02] MEDS ORDERED: iohexol 300mg/ml 100ml inj. ONE (21:09)
[2025-07-02 21:13] LABS: CREATININE 0.80 MG/DL (0.40-0.90); TOTAL CARBON DIOXIDE 28.0 MMOL/L (24-32); eCRCL 113 ML/MIN; eGFR > 90 ML/MIN
--- NOTE | 2025-07-02 21:50 | RADIOLOGY REPORT ---
Exam: CT CT ABDOMEN PELVIS W/ IV CONTRAST History: ABD PAIN Status post cholecystectomy ERCP continued pain x1 month Comparison Study: CT CT ABDOMEN PELVIS W/ IV CONTRAST on DOS: 09/08/24 TECHNIQUE: Multidetector CT of the abdomen and pelvis with IV contrast. Axial, coronal and sagittal multiplanar reformats were obtained from the axial data set by the technologist. Radiation Dose Information: CT Dose: CTDI volume is 35.44 mGy. Dose-length product is 1884.46 mGy*cm FINDINGS: The lung bases are clear. Partially visualized heart is unremarkable. Status post cholecystectomy with nonspecific hypodense area within the liver adjacent to the gallbladder fossa which may be associated with the cholecystectomy. Mild pneumobilia. No significant distention of the common bile duct. Mild splenomegaly. Otherwise, spleen, pancreas and adrenal glands are un remarkable. Kidneys, ureters and urinary bladder are unremarkable. Uterus and adnexa are unremarkable. Stomach is unremarkable. Small bowel loops are unremarkable. Appendix is not definitely visualized. without visualization of the appendix, can not exclude acute appendicitis. Moderate amount of fecal material within the ascending and transverse colons. Mild rectal wall thickening which may be from inadequate distention. No evidence of intraperitoneal free air or free fluid. No evidence of aortic aneurysm or dissection. Shotty mesenteric lymph nodes. Tiny fat containing umbilical hernia. Mild fat stranding over the right ventral medial midabdominal subcutaneous fat. No evidence of acute osseous abnormalities. Sclerotic focus over the left femoral head which represent a small bone island with a Blastic lesion not excluded. IMPRESSION: Pneumobilia. Status post cholecystectomy. Peripheral hypodense area within the liver adjacent to the gallbladder fossa which does not measure as simple fluid and may be associated with a cholecystectomy, new from 09/08/2024. Mild rectal wall thickening which may be due to inadequate distention with proctitis thought less likely.
--- NOTE | 2025-07-02 22:07 | Physician Documentation ---
History of Present Illness ~ Chief Complaint: Abdominal Pain Stated Complaint: ABDOMINAL PAIN Time Seen by MD: 20:37 Primary Medical Doctor: [facility] Source: patient Mode of Arrival: POV Exam Limitations: no limitations HPI 19-year-old female recent ERCP cholecystectomy at the end of May approximately 1 month ago had less pain in the past few weeks but recently lifted her nephew and went to have an event where she has been having a little more pain more musculoskeletal in nature where there is movement a causes some pain to the right upper quadrant. She describes it as some bloating as well. No pain after eating. No fevers. No other associated symptoms. Medication Reconciliation Allergies: Coded Allergies: ondansetron (Verified Allergy, Mild, rash, 06/01/25) Uncoded Allergies: ADHESIVE (TAPE) (Allergy, Severe, 06/01/25) Scheduled Pantoprazole Sodium (PROTONIX tablet), 1 TAB PO DAILY Past Medical History Past Medical History: No Pertinent History Past Surgical History: cholecystectomy, tonsillectomy Patient History: FH: diabetes mellitus Maternal grandmother Paternal grandmother Smoking Status: Never smoker Alcohol Use: None Drug Use: none Lives with: Family Lives In: Home Occupation: student, child Review of Systems All Other Systems at this time: Reviewed and Negative Gastrointestinal: Reports: see HPI Physical Exam Vital Signs: RN Vital Signs have been reviewed: Yes, Temperature: 99.0, Source: Oral, Heart Rate: 92, Respiratory Rate: 16, BP: 114/79, Pulse Oximetry: 100, Weight: 108.000 Oxygen Flow Rate: 0 Physical Exam General: Alert, no apparent distress. HEENT: PERRL, EOMI, no injection, moist mucous membranes. Neck: Full range of motion. Respiratory: Lungs clear, no respiratory distress. Chest: No accessory muscle use. Cardiovascular: Regular rate and rhythm, no murmurs. Gastrointestinal: Surgical lap sites well healed without signs of infection. Mild pain with palpation of the right upper quadrant. No obvious bloating or masses. No CVS tenderness or flank pain. Normoactive bowel sounds Extremities: Normal range of motion, no deformity. Neurologic: Oriented x4. Psychiatric: Normal mood and affect. Skin: Normal color, warm and dry. No edema, no ecchymosis. Progress Results/Orders Results/Orders Orders - AFRICA ERWIN NP Ct Abdomen Pelvis (07/02/25 21:20) Completed Orders - AFRICA ERWIN MANAGER [employer] WORK Cbc/Diff (07/02/25 20:38) Ct Abdomen Pelvis (07/02/25 21:20) BMP (07/02/25 20:38) Hcg, Ur Ql (07/02/25 20:38) Vital Signs 07/02/25 07/02/25 07/02/25 20:13 20:37 21:29 Temp 99.0 99.0 Pulse 89 92 Resp 16 16 B/P (MAP) 107/73 114/79 (91) Pulse Ox 99 100 O2 Flow Rate 0 Laboratory Tests Test 07/02/25 20:43 07/02/25 20:56 Urine HCG, Qualitative Negative White Blood Count 7.4 Red Blood Count 4.24 Hemoglobin 11.9 L Hematocrit 35.0 Mean Corpuscular Volume 82.5 Mean Corpuscular Hemoglobin 27.9 Mean Corpuscular Hemoglobin Concent 33.9 Red Cell Distribution Width 14.3 Platelet Count 303 Mean Platelet Volume 7.8 Neutrophils (%) (Auto) 53.1 Lymphocytes (%) (Auto) 34.8 Monocytes (%) (Auto) 7.5 Eosinophils (%) (Auto) 3.7 Basophils (%) (Auto) 0.9 Neutrophils # (Auto) 4.0 Lymphocytes # (Auto) 2.6 Monocytes # (Auto) 0.6 Eosinophils # (Auto) 0.3 Basophils # (Auto) 0.1 CBC Comment Sodium Level 139 Potassium Level 3.9 Chloride Level 105 Carbon Dioxide Level 28.0 Anion Gap 6 L Blood Urea Nitrogen 11 Creatinine 0.80 Estimated GFR/1.73 m2 > 90 BUN/Creatinine Ratio 13.8 Glucose Level 91 Calcium Level 9.0 Albumin 4.0 Chemistry Comments EKG/XRAY/CT/US/VASC/MRI CT : Impression Exam: CT CT ABDOMEN PELVIS W/ IV CONTRAST History: ABD PAIN Status post cholecystectomy ERCP continued pain x1 month Comparison Study: CT CT ABDOMEN PELVIS W/ IV CONTRAST on DOS: 09/08/24 TECHNIQUE: Multidetector CT of the abdomen and pelvis with IV contrast. Axial, coronal and sagittal multiplanar reformats were obtained from the axial data set by the technologist. Radiation Dose Information: CT Dose: CTDI volume is 35.44 mGy. Dose-length product is 1884.46 mGy*cm FINDINGS: The lung bases are clear. Partially visualized heart is unremarkable. Status post cholecystectomy with nonspecific hypodense area within the liver adjacent to the gallbladder fossa which may be associated with the cholecystectomy. Mild pneumobilia. No significant distention of the common bile duct. Mild splenomegaly. Otherwise, spleen, pancreas and adrenal glands are unremarkable. Kidneys, ureters and urinary bladder are unremarkable. Uterus and adnexa are unremarkable. Stomach is unremarkable. Small bowel loops are unremarkable. Appendix is not definitely visualized. without visualization of the appendix, can not exclude acute appendicitis. Moderate amount of fecal material within the ascending and transverse colons. Mild rectal wall thickening which may be from inadequate distention. No evidence of intraperitoneal free air or free fluid. No evidence of aortic aneurysm or dissection. Shotty mesenteric lymph nodes. Tiny fat containing umbilical hernia. Mild fat stranding over the right ventral medial midabdominal subcutaneous fat. No evidence of acute osseous abnormalities. Sclerotic focus over the left femoral head which represent a small bone island with a Blastic lesion not excluded. IMPRESSION: Pneumobilia. Status post cholecystectomy. Peripheral hypodense area within the liver adjacent to the gallbladder fossa which does not measure as simple fluid and may be associated with a cholecystectomy, new from 09/08/2024. Mild rectal wall thickening which may be due to inadequate distention with proctitis thought less likely. Medical Decision Making Additional information obtaine: old records Findings CT scan shows some normal signs of an ERCP. WBCs within normal limits. Vital signs and labs reassuring. Discussed rest and close follow up with primary care as needed Diff Dx GI Bleed:Consideration: Include: Other Diff Dx Pain:Considerations: Include: Other Diff Dx N/V/D:Considerations: Include: Other Diff Dx Rectal:Considerations: Include: Other Departure Time of Disposition: 22:06 Disposition: 01 HOME / SELF CARE / HOMELESS Impression: Primary Impression: Abdominal pain Condition: Stable Discharge Instructions: Abdominal Pain (Nonspecific) Additional Instructions: CT was unremarkable for any significant findings suggestive of injury due to lifting your nephew or being pulled by her friend. Take Tylenol and ibuprofen as needed for [id number] pain. Follow up with primary care as needed feel free to return to the ER for any new or worsening symptoms. Referrals: NO PRIMARY CARE PROVIDER (PCP) Education Educated: Patient Educated regarding: diagnosis, treatment, need for follow up Signature Scribe Signature: No scribe Attestation: The note accurately reflects work and decisions made by me.[place] KOROMA 07/02/25 22:07 AFRICA ERWIN NP Jul 02, 2025 22:07
[2025-07-02 22:22] VITALS: BP 105/67; PULSE 82; RESP 16; TEMP 99; O2SAT 98
== END 2025-07-02 22:24 | disposition home or self-care (01) ==
LOC: ER 20:06
DX: R10.9 Unspecified abdominal pain (principal); Z90.49 Acquired absence of other specified parts of digestive tract; Z90.89 Acquired absence of other organs
CPT/HCPCS: 36415; 74177; 80048; 81025; 85025; 99285; Q9967